=== PATIENT | female | born 1960 | race Caucasian/White ===

== ENCOUNTER 2018-10-03 16:32 | Inpatient (IN) | payer MEDICAID, OTHER ==
[~2018-10-03] VITALS: Ht 170.2 cm; Wt 61.2 kg
[2018-10-03] MEDS ORDERED: SODIUM CHLORIDE 0.9% 1000ML BAG (SEPSIS BOLUS) IV ONE (17:15)
[2018-10-03] MEDS ORDERED: LORAZEPAM 2MG/ML CPJ IM ONE (17:45)
[2018-10-03 17:48] LABS: BASOPHILS % 1.2 % (0.0-2.0); EOSINOPHILS % 2.3 % (0.0-5.0); HEMATOCRIT. 37.1 % (36.0-48.0); HEMOGLOBIN. 12.5 g/dL (12.0-16.0); LYMPHOCYTES % 35.8 % (20.0-50.0); MEAN CORPUSCULAR HEMOGLOBIN 28.4 pg (28.0-32.0); MEAN CORPUSCULAR VOLUME 84.6 fL (81.0-99.0); MEAN PLATELET VOLUME 7.9 fl (7.4-10.4); MONOCYTES % 8.4 % (2.0-8.0); NEUTROPHILS % 52.3 % (40.0-76.0); PLATELET 350 x1000/uL (130-400); RED BLOOD CELL COUNT 4.38 mill/uL (4.2-5.4); RED CELL DISTRIBUTION WIDTH 14.7 % (11.6-14.6)
[2018-10-03 17:52] LABS: CHLORIDE 104 mEq/L (98-107)
[2018-10-03 17:56] LABS: ETHANOL BLOOD < 10 mg/dL
[2018-10-03 17:58] LABS: PARTIAL THROMBOPLASTIN TIME 25.7 sec (23.4-31.0); PROTHROMBIN TIME 10.1 sec (9.1-11.1)
[2018-10-03 18:03] LABS: HCG SCREEN NEGATIVE
[2018-10-03 19:31] LABS: CLARITY URINE CLOUDY (CLEAR); COLOR URINE YELLOW (YELLOW); KETONES URINE TRACE (NEGATIVE); LEUKOCYTE ESTERASE URINE 3+ (NEGATIVE); NITRITE URINE NEGATIVE (NEGATIVE); OCCULT BLOOD URINE 2+ (NEGATIVE); PROTEIN URINE NEGATIVE (NEGATIVE); UROBILINOGEN URINE 0.2 E.U./dL (0.2-1.0)
[2018-10-03 19:49] LABS: *BENZODIAZEPINES SCREEN URINE NEGATIVE (NEGATIVE); *COCAINE SCREEN URINE NEGATIVE (NEGATIVE); CANNABINOID URINE SCREEN NEGATIVE (NEGATIVE); METHADONE URINE SCREEN NEGATIVE (NEGATIVE); OPIATES URINE SCREEN NEGATIVE (NEGATIVE); PHENCYCLIDINE URINE SCREEN NEGATIVE (NEGATIVE)
[2018-10-03 19:50] LABS: *AMPHETAMINES SCREEN URINE NEGATIVE (NEGATIVE); *BARBITURATES SCREEN URINE NEGATIVE (NEGATIVE)
[2018-10-03] MEDS ORDERED: LEVOFLOXACIN 750MG PREMIX 150 ML IV ONE (20:00)
[2018-10-03] MEDS ORDERED: MICONAZOLE NITRATE 2% OINT 71GM TOP SCH (21:00)
[2018-10-03] MEDS ORDERED: ASPIRIN 81MG TABLET PO ONE (21:15)
[2018-10-03] MEDS ORDERED: MAGNESIUM/ALUMINUM HYDROXIDE/SIMETHICONE 30ML UDC PO PRN (21:30)
[2018-10-03] MEDS ORDERED: ACETAMINOPHEN 325MG TABLET PO PRN (21:30)
[2018-10-03] MEDS ORDERED: IPRATROPIUM/ALBUTEROL 0.5-3(2.5)MG/3ML NEB INH PRN (21:30)
[2018-10-03] MEDS ORDERED: DIPHENHYDRAMINE 50MG/ML VIAL IV PRN (21:30)
[2018-10-03] MEDS ORDERED: GUAIFENESIN 200MG/10ML SUGAR FREE UDC PO PRN (21:30)
[2018-10-03] MEDS ORDERED: LORAZEPAM 2MG/ML CPJ IV PRN (21:30)
[2018-10-03] MEDS ORDERED: DOCUSATE SODIUM 100MG CAPSULE PO PRN (21:30)
[2018-10-03] MEDS ORDERED: CLONIDINE 0.1MG TABLET PO PRN (21:30)
[2018-10-03] MEDS ORDERED: HYDROCODONE/ACETAMINOPHEN 5/325MG TABLET PO PRN (21:30)
[2018-10-03] MEDS ORDERED: ONDANSETRON HCL 4MG/2ML INJ IV PRN (21:30)
[2018-10-03] MEDS ORDERED: LEVOFLOXACIN 500MG PREMIX 100 ML IV SCH (21:30)
[2018-10-03] MEDS ORDERED: MORPHINE SULFATE 4 MG/ML CPJ (NOT FOR IM USE) IV PRN (21:45)
[2018-10-04] VITALS: BP_SYST 111; BP_SYST 121; BP_DIAS 74; BP_DIAS 79
[2018-10-04 00:29] LABS: CHLORIDE 106 mEq/L (98-107)
[2018-10-04] MEDS ORDERED: DIVA500T3 MT (00:57)
[2018-10-04] MEDS: SODIUM CHLORIDE 0.45% 1,000 ML IV SCH ×2 (01:55→22:00)
[2018-10-04 04:00] VITALS: BP 112/66
[2018-10-04 08:00] VITALS: BP 123/70
[2018-10-04] MEDS ORDERED: NA PHOS,M-B/NA PHOS,DI-BA ENEMA 118ML PR PRN (09:00)
[2018-10-04 09:01] LABS: BASOPHILS % 0.8 % (0.0-2.0); EOSINOPHILS % 3.5 % (0.0-5.0); HEMATOCRIT. 34.3 % (36.0-48.0); HEMOGLOBIN. 11.3 g/dL (12.0-16.0); LYMPHOCYTES % 39.1 % (20.0-50.0); MEAN CORPUSCULAR HEMOGLOBIN 27.9 pg (28.0-32.0); MEAN CORPUSCULAR VOLUME 84.4 fL (81.0-99.0); MONOCYTES % 8.5 % (2.0-8.0); NEUTROPHILS % 48.1 % (40.0-76.0); PLATELET 348 x1000/uL (130-400); RED BLOOD CELL COUNT 4.06 mill/uL (4.2-5.4); RED CELL DISTRIBUTION WIDTH 14.6 % (11.6-14.6)
[2018-10-04] MEDS: ENOXAPARIN 40MG/0.4ML SYR SUBCUT SCH (09:42)
[2018-10-04 11:20] LABS: CHLORIDE 106 mEq/L (98-107)
[2018-10-04 11:32] LABS: LDL CHOLESTEROL 69 mg/dL (5-100)
[2018-10-04 11:34] LABS: HDL CHOLESTEROL 49 mg/dL (40-59)
[2018-10-04 12:00] VITALS: BP 133/73
[2018-10-04 16:00] VITALS: BP 142/78
[2018-10-04 20:00] VITALS: BP 115/63
[2018-10-04] MEDS ORDERED: LEVOFLOXACIN 500MG PREMIX 100 ML IV SCH (21:00)
[2018-10-05] VITALS: BP 111/61
[2018-10-05 04:00] VITALS: BP 123/64
[2018-10-05 08:00] VITALS: BP 116/58
[2018-10-05] MEDS: ENOXAPARIN 40MG/0.4ML SYR SUBCUT SCH (09:00)
[2018-10-05] MEDS: LORAZEPAM 2MG/ML CPJ IM PRN (10:26)
[2018-10-05 12:00] VITALS: BP 126/65
[2018-10-05 16:00] VITALS: BP 112/40
[2018-10-05] MEDS: NITROFURANTOIN 100MG M/M CAPSULE PO SCH ×2 (16:00→23:00)
[2018-10-05] MEDS: SODIUM CHLORIDE 0.45% 1,000 ML IV SCH (17:20)
[2018-10-06 04:00] VITALS: BP 101/52
[2018-10-06 08:00] VITALS: BP 96/53
[2018-10-06] MEDS: LORAZEPAM 2MG/ML CPJ IM PRN ×2 (08:03→20:57)
[2018-10-06] MEDS: NITROFURANTOIN 100MG M/M CAPSULE PO SCH ×2 (09:00→22:36)
[2018-10-06] MEDS: ENOXAPARIN 40MG/0.4ML SYR SUBCUT SCH (09:00)
[2018-10-06 12:00] VITALS: BP 111/68
[2018-10-06] MEDS: SODIUM CHLORIDE 0.45% 1,000 ML IV SCH (14:00)
[2018-10-06 16:00] VITALS: BP 105/55
[2018-10-06 20:00] VITALS: BP 98/66
[2018-10-07 06:00] VITALS: BP 110/65
[2018-10-07 08:00] VITALS: BP 134/63
[2018-10-07] MEDS: ENOXAPARIN 40MG/0.4ML SYR SUBCUT SCH (09:00)
[2018-10-07] MEDS: NITROFURANTOIN 100MG M/M CAPSULE PO SCH ×2 (09:38→20:13)
[2018-10-07] MEDS: SODIUM CHLORIDE 0.45% 1,000 ML IV SCH (09:48)
[2018-10-07] MEDS: LORAZEPAM 2MG/ML CPJ IM PRN ×2 (11:39→23:57)
[2018-10-07 15:51] VITALS: BP 121/61
[2018-10-07 20:00] VITALS: BP 110/60
[2018-10-08] VITALS: BP 104/65
[2018-10-08 04:00] VITALS: BP 154/82
[2018-10-08] MEDS: SODIUM CHLORIDE 0.45% 1,000 ML IV SCH (06:00)
[2018-10-08] MEDS: ENOXAPARIN 40MG/0.4ML SYR SUBCUT SCH (09:00)
[2018-10-08] MEDS: NITROFURANTOIN 100MG M/M CAPSULE PO SCH ×2 (09:00→21:00)
[2018-10-09] MEDS: SODIUM CHLORIDE 0.45% 1,000 ML IV SCH ×2 (02:00→22:00)
[2018-10-09] MEDS: LORAZEPAM 2MG/ML CPJ IM PRN ×3 (02:28→08:55)
[2018-10-09 08:00] VITALS: BP 131/72
[2018-10-09] MEDS: NITROFURANTOIN 100MG M/M CAPSULE PO SCH ×2 (08:16→21:00)
[2018-10-09] MEDS: ENOXAPARIN 40MG/0.4ML SYR SUBCUT SCH (08:17)
[2018-10-09 12:00] VITALS: BP 120/72
[2018-10-09 20:00] VITALS: BP 105/46
[2018-10-10] VITALS: BP 106/47
[2018-10-10 04:00] VITALS: BP 107/52
[2018-10-10 08:00] VITALS: BP 105/57
[2018-10-10] MEDS: NITROFURANTOIN 100MG M/M CAPSULE PO SCH ×2 (08:20→20:20)
[2018-10-10] MEDS: ENOXAPARIN 40MG/0.4ML SYR SUBCUT SCH (08:20)
[2018-10-10 12:00] VITALS: BP 147/75
[2018-10-10 16:00] VITALS: BP 110/60
[2018-10-10] MEDS: SODIUM CHLORIDE 0.45% 1,000 ML IV SCH (18:00)
[2018-10-10 20:00] VITALS: BP 121/76
[2018-10-11] VITALS: BP 127/67
[2018-10-11 04:00] VITALS: BP 129/51
[2018-10-11 08:00] VITALS: BP 121/56
[2018-10-11] MEDS: ENOXAPARIN 40MG/0.4ML SYR SUBCUT SCH (09:00)
[2018-10-11] MEDS: NITROFURANTOIN 100MG M/M CAPSULE PO SCH ×2 (09:00→21:00)
[2018-10-11] MEDS: SODIUM CHLORIDE 0.45% 1,000 ML IV SCH (14:00)
[2018-10-12 04:00] VITALS: BP 112/53
[2018-10-12] MEDS: ENOXAPARIN 40MG/0.4ML SYR SUBCUT SCH (09:00)
[2018-10-12] MEDS: NITROFURANTOIN 100MG M/M CAPSULE PO SCH ×2 (09:44→20:03)
[2018-10-12] MEDS: SODIUM CHLORIDE 0.45% 1,000 ML IV SCH (10:00)
[2018-10-12 20:00] VITALS: BP 141/73
[2018-10-13 00:25] VITALS: BP 96/45
[2018-10-13 04:00] VITALS: BP 139/49
[2018-10-13] MEDS: SODIUM CHLORIDE 0.45% 1,000 ML IV SCH (05:04)
[2018-10-13 07:30] VITALS: BP 113/84
[2018-10-13] MEDS: ENOXAPARIN 40MG/0.4ML SYR SUBCUT SCH (09:00)
[2018-10-13 12:00] VITALS: BP 192/94
[2018-10-14] MEDS: SODIUM CHLORIDE 0.45% 1,000 ML IV SCH ×2 (02:00→22:00)
[2018-10-14 08:00] VITALS: BP 121/56
[2018-10-14] MEDS: ENOXAPARIN 40MG/0.4ML SYR SUBCUT SCH (08:33)
[2018-10-14 12:00] VITALS: BP 140/86
[2018-10-14 16:00] VITALS: BP 131/80
[2018-10-14 20:00] VITALS: BP 129/63
[2018-10-15] VITALS: BP 133/80
[2018-10-15 04:00] VITALS: BP 112/60
[2018-10-15 08:00] VITALS: BP 111/52
[2018-10-15] MEDS: ENOXAPARIN 40MG/0.4ML SYR SUBCUT SCH (08:19)
[2018-10-15 20:00] VITALS: BP 122/60
[2018-10-15] MEDS: LORAZEPAM 2MG/ML CPJ IM PRN (22:06)
[2018-10-16] VITALS: BP 116/72
[2018-10-16 04:00] VITALS: BP 108/44
[2018-10-16 08:00] VITALS: BP 129/67
[2018-10-16] MEDS: ENOXAPARIN 40MG/0.4ML SYR SUBCUT SCH (09:00)
[2018-10-16] MEDS: SODIUM CHLORIDE 0.45% 1,000 ML IV SCH (09:34)
[2018-10-16] MEDS: LORAZEPAM 2MG/ML CPJ IM PRN ×2 (10:51→21:15)
[2018-10-16] MEDS ORDERED: HALOPERIDOL LACTATE 5MG/ML VIAL IM NR (11:15)
[2018-10-16 16:00] VITALS: BP 98/58
[2018-10-16 20:00] VITALS: BP 110/53
[2018-10-17] MEDS: LORAZEPAM 2MG/ML CPJ IM PRN ×2 (03:23→18:30)
[2018-10-17 04:00] VITALS: BP 105/51
[2018-10-17] MEDS: ENOXAPARIN 40MG/0.4ML SYR SUBCUT SCH (08:36)
[2018-10-17] MEDS: SODIUM CHLORIDE 0.45% 1,000 ML IV SCH (10:00)
[2018-10-17 12:00] VITALS: BP 147/78
[2018-10-17 20:00] VITALS: BP 100/42
[2018-10-18] VITALS: BP 118/50
[2018-10-18 04:00] VITALS: BP 128/62
[2018-10-18] MEDS: SODIUM CHLORIDE 0.45% 1,000 ML IV SCH (06:00)
[2018-10-18] MEDS: ENOXAPARIN 40MG/0.4ML SYR SUBCUT SCH (09:00)
[2018-10-18] MEDS: LORAZEPAM 2MG/ML CPJ IM PRN ×3 (09:34→21:27)
[2018-10-18 20:00] VITALS: BP 129/70
[2018-10-19] VITALS: BP 119/77
[2018-10-19] MEDS: SODIUM CHLORIDE 0.45% 1,000 ML IV SCH (02:00)
[2018-10-19 04:00] VITALS: BP 123/70
[2018-10-19] MEDS: LORAZEPAM 2MG/ML CPJ IM PRN ×2 (06:20→17:19)
[2018-10-19] MEDS: ENOXAPARIN 40MG/0.4ML SYR SUBCUT SCH (09:00)
[2018-10-20 08:00] VITALS: BP 139/81
[2018-10-20] MEDS: ENOXAPARIN 40MG/0.4ML SYR SUBCUT SCH (08:58)
[2018-10-20] MEDS ORDERED: HALOPERIDOL LACTATE 5MG/ML VIAL IM PRN (09:15)
[2018-10-20] MEDS: HALOPERIDOL LACTATE 5MG/ML VIAL IM PRN ×2 (10:12→23:00)
[2018-10-20 16:00] VITALS: BP 134/72
[2018-10-20 20:00] VITALS: BP 131/65
[2018-10-21] VITALS: BP 117/63
[2018-10-21 04:00] VITALS: BP 106/55
[2018-10-21] MEDS: HALOPERIDOL LACTATE 5MG/ML VIAL IM PRN ×2 (07:48→15:58)
[2018-10-21 08:00] VITALS: BP 137/53
[2018-10-21] MEDS: ENOXAPARIN 40MG/0.4ML SYR SUBCUT SCH (08:48)
[2018-10-21] MEDS: LORAZEPAM 2MG/ML CPJ IM PRN ×3 (08:49→17:42)
[2018-10-21] MEDS ORDERED: HALOPERIDOL 5MG TABLET PO NR (19:00)
[2018-10-21] MEDS ORDERED: HALOPERIDOL LACTATE 5MG/ML VIAL IM NR (19:00)
[2018-10-21 20:00] VITALS: BP 115/56
[2018-10-21] MEDS ORDERED: HALOPERIDOL 5MG TABLET PO PRN (23:00)
[2018-10-22] MEDS: HALOPERIDOL LACTATE 5MG/ML VIAL IM PRN ×3 (03:10→19:51)
[2018-10-22 04:00] VITALS: BP 122/3
[2018-10-22 08:00] VITALS: BP 108/66
[2018-10-22] MEDS: ENOXAPARIN 40MG/0.4ML SYR SUBCUT SCH (09:00)
[2018-10-22 10:05] LABS: HEMATOCRIT 35.1 % (36.0-48.0); HEMOGLOBIN 11.5 g/dL (12.0-16.0); MEAN CORPUSCULAR HEMOGLOBIN 27.9 pg (28.0-32.0); PLATELET 394 x1000/uL (130-400); RED BLOOD CELL COUNT 4.13 mill/uL (4.2-5.4); RED CELL DISTRIBUTION WIDTH 15.6 % (11.6-14.6)
[2018-10-22 12:00] VITALS: BP 118/68
[2018-10-22 16:00] VITALS: BP 158/78
[2018-10-22 20:00] VITALS: BP 129/70
[2018-10-23] VITALS: BP 135/80
[2018-10-23 04:00] VITALS: BP 134/69
[2018-10-23 08:00] VITALS: BP 112/67
[2018-10-23] MEDS: ENOXAPARIN 40MG/0.4ML SYR SUBCUT SCH (09:33)
[2018-10-23 12:00] VITALS: BP 108/60
[2018-10-23 16:00] VITALS: BP 170/82
[2018-10-23 20:00] VITALS: BP 129/77
[2018-10-23] MEDS: HALOPERIDOL LACTATE 5MG/ML VIAL IM PRN (23:09)
[2018-10-24] VITALS: BP 126/71
[2018-10-24] MEDS: SODIUM CHLORIDE 0.45% 1,000 ML IV SCH ×2 (02:00→22:00)
[2018-10-24 04:00] VITALS: BP 136/72
[2018-10-24 08:00] VITALS: BP 119/56
[2018-10-24] MEDS: ENOXAPARIN 40MG/0.4ML SYR SUBCUT SCH (08:37)
[2018-10-24 12:00] VITALS: BP 121/62
[2018-10-24 16:00] VITALS: BP 130/61
[2018-10-24] MEDS: HALOPERIDOL LACTATE 5MG/ML VIAL IM PRN (18:33)
[2018-10-24 20:00] VITALS: BP 119/55
[2018-10-25] VITALS: BP 116/62
[2018-10-25 04:00] VITALS: BP 134/63
[2018-10-25 07:38] VITALS: BP 127/70
[2018-10-25] MEDS: ENOXAPARIN 40MG/0.4ML SYR SUBCUT SCH (09:00)
[2018-10-25 12:00] VITALS: BP 119/71
[2018-10-25 16:00] VITALS: BP 133/68
[2018-10-25] MEDS: SODIUM CHLORIDE 0.45% 1,000 ML IV SCH (18:00)
[2018-10-25 20:00] VITALS: BP 129/69
[2018-10-26] VITALS: BP 134/64
[2018-10-26] MEDS: HALOPERIDOL LACTATE 5MG/ML VIAL IM PRN ×2 (00:51→21:52)
[2018-10-26 04:00] VITALS: BP 128/69
[2018-10-26 08:00] VITALS: BP 122/58
[2018-10-26] MEDS: ENOXAPARIN 40MG/0.4ML SYR SUBCUT SCH (09:00)
[2018-10-26 12:00] VITALS: BP 126/60
[2018-10-26] MEDS: SODIUM CHLORIDE 0.45% 1,000 ML IV SCH (14:00)
[2018-10-26 16:00] VITALS: BP 127/66
[2018-10-26 20:00] VITALS: BP 101/62
[2018-10-27] VITALS: BP 110/68
[2018-10-27 04:00] VITALS: BP 120/72
[2018-10-27 07:21] VITALS: BP 120/50
[2018-10-27] MEDS: ENOXAPARIN 40MG/0.4ML SYR SUBCUT SCH (09:00)
[2018-10-27] MEDS: SODIUM CHLORIDE 0.45% 1,000 ML IV SCH (10:00)
[2018-10-27] MEDS: HALOPERIDOL LACTATE 5MG/ML VIAL IM PRN ×2 (10:15→18:00)
[2018-10-27 12:00] VITALS: BP 113/70
[2018-10-27 16:00] VITALS: BP 113/71
[2018-10-27 20:00] VITALS: BP 133/70
[2018-10-28] VITALS: BP 127/78
[2018-10-28 04:00] VITALS: BP 136/72
[2018-10-28] MEDS: HALOPERIDOL LACTATE 5MG/ML VIAL IM PRN ×2 (04:54→16:15)
[2018-10-28] MEDS: SODIUM CHLORIDE 0.45% 1,000 ML IV SCH (06:00)
[2018-10-28 08:00] VITALS: BP 98/58
[2018-10-28] MEDS: ENOXAPARIN 40MG/0.4ML SYR SUBCUT SCH (09:38)
[2018-10-28 12:00] VITALS: BP 107/71
[2018-10-28 16:00] VITALS: BP 125/78
[2018-10-28 20:00] VITALS: BP 129/77
[2018-10-29] VITALS: BP 135/69
[2018-10-29] MEDS: SODIUM CHLORIDE 0.45% 1,000 ML IV SCH ×2 (02:00→22:00)
[2018-10-29 04:00] VITALS: BP 118/71
[2018-10-29] MEDS: HALOPERIDOL LACTATE 5MG/ML VIAL IM PRN (06:41)
[2018-10-29 08:00] VITALS: BP 126/69
[2018-10-29] MEDS: ENOXAPARIN 40MG/0.4ML SYR SUBCUT SCH (08:19)
[2018-10-29 12:00] VITALS: BP 136/65
[2018-10-29 16:00] VITALS: BP 125/71
[2018-10-29 20:00] VITALS: BP 119/68
[2018-10-30] VITALS: BP 128/72
[2018-10-30] MEDS: HALOPERIDOL LACTATE 5MG/ML VIAL IM PRN (01:03)
[2018-10-30 04:00] VITALS: BP 115/70
[2018-10-30 08:00] VITALS: BP 121/66
[2018-10-30] MEDS: ENOXAPARIN 40MG/0.4ML SYR SUBCUT SCH (09:00)
[2018-10-30 12:00] VITALS: BP 124/70
[2018-10-30 16:00] VITALS: BP 106/42
[2018-10-30] MEDS: SODIUM CHLORIDE 0.45% 1,000 ML IV SCH (17:23)
[2018-10-30 20:00] VITALS: BP 102/51
[2018-10-31 08:10] VITALS: BP 111/54
[2018-10-31] MEDS: ENOXAPARIN 40MG/0.4ML SYR SUBCUT SCH (08:35)
[2018-10-31 12:00] VITALS: BP 131/72
[2018-10-31] MEDS: SODIUM CHLORIDE 0.45% 1,000 ML IV SCH (14:00)
[2018-10-31] MEDS: HALOPERIDOL LACTATE 5MG/ML VIAL IM PRN (14:43)
[2018-10-31 16:00] VITALS: BP 126/68
[2018-10-31 19:00] VITALS: BP 121/56
[2018-11-01] VITALS: BP 120/56
[2018-11-01 08:00] VITALS: BP 123/52
[2018-11-01] MEDS: ENOXAPARIN 40MG/0.4ML SYR SUBCUT SCH (09:00)
[2018-11-01 12:00] VITALS: BP 120/56
[2018-11-01 16:00] VITALS: BP 117/48
[2018-11-01 20:00] VITALS: BP 135/74
[2018-11-02] VITALS: BP 124/69
[2018-11-02 04:00] VITALS: BP 126/71
[2018-11-02] MEDS: HALOPERIDOL LACTATE 5MG/ML VIAL IM PRN ×2 (06:47→21:54)
[2018-11-02 08:00] VITALS: BP 119/67
[2018-11-02] MEDS: ENOXAPARIN 40MG/0.4ML SYR SUBCUT SCH (08:23)
[2018-11-02 12:00] VITALS: BP 126/64
[2018-11-02 16:00] VITALS: BP 112/50
[2018-11-02 20:00] VITALS: BP 128/58
[2018-11-03] VITALS (7 sets, daily range): BP systolic 120–135; BP diastolic 50–68
[2018-11-03] MEDS: ENOXAPARIN 40MG/0.4ML SYR SUBCUT SCH (09:05)
[2018-11-03 09:44] LABS: HEMATOCRIT 37.8 % (36.0-48.0); HEMOGLOBIN 12.6 g/dL (12.0-16.0); MEAN CORPUSCULAR HEMOGLOBIN 28.2 pg (28.0-32.0); MEAN CORPUSCULAR VOLUME 84.8 fL (81.0-99.0); PLATELET 417 x1000/uL (130-400); RED BLOOD CELL COUNT 4.45 mill/uL (4.2-5.4); RED CELL DISTRIBUTION WIDTH 15.6 % (11.6-14.6)
[2018-11-03 10:23] LABS: CHLORIDE 108 mEq/L (98-107)
[2018-11-04 08:00] VITALS: BP 126/61
[2018-11-04] MEDS: DOCUSATE SODIUM 100MG CAPSULE PO SCH (09:25)
[2018-11-04] MEDS: ENOXAPARIN 40MG/0.4ML SYR SUBCUT SCH (09:25)
[2018-11-04 12:00] VITALS: BP 126/63
[2018-11-04 16:00] VITALS: BP 136/61
[2018-11-04 20:00] VITALS: BP 139/67
[2018-11-05] VITALS: BP 131/73
[2018-11-05 04:00] VITALS: BP 128/71
[2018-11-05 08:00] VITALS: BP 134/43
[2018-11-05] MEDS: DOCUSATE SODIUM 100MG CAPSULE PO SCH (08:49)
[2018-11-05] MEDS: ENOXAPARIN 40MG/0.4ML SYR SUBCUT SCH (08:49)
[2018-11-05 12:00] VITALS: BP 119/57
[2018-11-05 16:03] VITALS: BP 137/50
[2018-11-05 20:00] VITALS: BP 138/66
[2018-11-06] VITALS: BP 131/56
[2018-11-06 04:00] VITALS: BP 112/54
[2018-11-06 08:00] VITALS: BP 106/52
[2018-11-06] MEDS: ENOXAPARIN 40MG/0.4ML SYR SUBCUT SCH (09:16)
[2018-11-06] MEDS: DOCUSATE SODIUM 100MG CAPSULE PO SCH (09:16)
[2018-11-06] MEDS: HALOPERIDOL LACTATE 5MG/ML VIAL IM PRN ×2 (09:16→20:33)
[2018-11-06 12:00] VITALS: BP 119/55
[2018-11-06 16:00] VITALS: BP 114/61
[2018-11-06 20:00] VITALS: BP 136/80
[2018-11-07] VITALS: BP 118/77
[2018-11-07 04:00] VITALS: BP_SYST 119; BP_SYST 123; BP_DIAS 70
[2018-11-07 07:00] VITALS: BP 110/47
[2018-11-07] MEDS: DOCUSATE SODIUM 100MG CAPSULE PO SCH (08:11)
[2018-11-07] MEDS: ENOXAPARIN 40MG/0.4ML SYR SUBCUT SCH (08:12)
[2018-11-07 12:00] VITALS: BP 148/69
[2018-11-07 16:00] VITALS: BP 144/87
[2018-11-07 20:00] VITALS: BP 129/73
[2018-11-07] MEDS: HALOPERIDOL LACTATE 5MG/ML VIAL IM PRN (21:18)
[2018-11-08] VITALS: BP_SYST 123; BP_SYST 129; BP_DIAS 69; BP_DIAS 73
[2018-11-08 04:00] VITALS: BP 133/71
[2018-11-08 08:00] VITALS: BP 96/61
[2018-11-08] MEDS: DOCUSATE SODIUM 100MG CAPSULE PO SCH (08:30)
[2018-11-08] MEDS: ENOXAPARIN 40MG/0.4ML SYR SUBCUT SCH (08:30)
[2018-11-08 12:00] VITALS: BP 106/59
[2018-11-08 16:00] VITALS: BP 136/66
[2018-11-08 20:00] VITALS: BP 125/69
[2018-11-08] MEDS: HALOPERIDOL LACTATE 5MG/ML VIAL IM PRN (20:39)
[2018-11-09] VITALS: BP 130/70
[2018-11-09 04:00] VITALS: BP 129/67
[2018-11-09 08:00] VITALS: BP 132/62
[2018-11-09] MEDS: DOCUSATE SODIUM 100MG CAPSULE PO SCH (09:03)
[2018-11-09] MEDS: ENOXAPARIN 40MG/0.4ML SYR SUBCUT SCH (09:03)
[2018-11-09] MEDS: HALOPERIDOL LACTATE 5MG/ML VIAL IM PRN (22:12)
[2018-11-10] VITALS: BP 126/77
[2018-11-10 04:00] VITALS: BP 118/62
[2018-11-10 07:39] LABS: CHLORIDE 107 mEq/L (98-107)
[2018-11-10 07:45] LABS: BASOPHILS % 0.9 % (0.0-2.0); EOSINOPHILS % 4.8 % (0.0-5.0); HEMATOCRIT. 37.1 % (36.0-48.0); HEMOGLOBIN. 12.5 g/dL (12.0-16.0); LYMPHOCYTES % 45.8 % (20.0-50.0); MEAN CORPUSCULAR HEMOGLOBIN 28.2 pg (28.0-32.0); MEAN CORPUSCULAR VOLUME 83.9 fL (81.0-99.0); MEAN PLATELET VOLUME 7.7 fl (7.4-10.4); MONOCYTES % 6.5 % (2.0-8.0); PLATELET 470 x1000/uL (130-400); RED BLOOD CELL COUNT 4.42 mill/uL (4.2-5.4); RED CELL DISTRIBUTION WIDTH 15.2 % (11.6-14.6)
[2018-11-10 08:00] VITALS: BP 120/71
[2018-11-10] MEDS: HALOPERIDOL LACTATE 5MG/ML VIAL IM PRN ×2 (08:48→16:02)
[2018-11-10] MEDS: ENOXAPARIN 40MG/0.4ML SYR SUBCUT SCH (08:50)
[2018-11-10] MEDS: DOCUSATE SODIUM 100MG CAPSULE PO SCH (08:51)
[2018-11-10 12:00] VITALS: BP 117/60
[2018-11-10 16:00] VITALS: BP 125/69
[2018-11-10 20:00] VITALS: BP 118/70
[2018-11-11] VITALS: BP 128/70
[2018-11-11 04:00] VITALS: BP 135/77
[2018-11-11] MEDS: HALOPERIDOL LACTATE 5MG/ML VIAL IM PRN ×2 (07:26→21:07)
[2018-11-11 08:00] VITALS: BP 120/60
[2018-11-11] MEDS: ENOXAPARIN 40MG/0.4ML SYR SUBCUT SCH (08:11)
[2018-11-11] MEDS: DOCUSATE SODIUM 100MG CAPSULE PO SCH (08:11)
[2018-11-11 12:00] VITALS: BP 129/76
[2018-11-11 16:00] VITALS: BP 107/59
[2018-11-11 20:00] VITALS: BP 124/74
[2018-11-12] VITALS: BP 125/77
[2018-11-12 04:00] VITALS: BP 136/70
[2018-11-12 08:00] VITALS: BP 131/61
[2018-11-12] MEDS: DOCUSATE SODIUM 100MG CAPSULE PO SCH (08:12)
[2018-11-12] MEDS: ENOXAPARIN 40MG/0.4ML SYR SUBCUT SCH (08:12)
[2018-11-12 12:00] VITALS: BP 113/63
[2018-11-12 16:00] VITALS: BP 122/64
[2018-11-12 20:00] VITALS: BP 138/72
[2018-11-13] VITALS: BP 128/75
[2018-11-13 04:00] VITALS: BP 122/66
[2018-11-13 08:00] VITALS: BP 129/76
[2018-11-13] MEDS: DOCUSATE SODIUM 100MG CAPSULE PO SCH (08:18)
[2018-11-13] MEDS: ENOXAPARIN 40MG/0.4ML SYR SUBCUT SCH (08:19)
[2018-11-13 12:00] VITALS: BP 117/64
[2018-11-13 16:00] VITALS: BP 126/61
[2018-11-13 20:00] VITALS: BP 129/69
[2018-11-14] VITALS: BP 146/80
[2018-11-14 04:00] VITALS: BP 135/79
[2018-11-14 09:00] VITALS: BP 137/74
[2018-11-14] MEDS: DOCUSATE SODIUM 100MG CAPSULE PO SCH (09:28)
[2018-11-14] MEDS: HALOPERIDOL LACTATE 5MG/ML VIAL IM PRN (09:29)
[2018-11-14] MEDS: ENOXAPARIN 40MG/0.4ML SYR SUBCUT SCH (09:29)
[2018-11-14 12:00] VITALS: BP 118/68
[2018-11-14 16:00] VITALS: BP 113/54
[2018-11-14 20:00] VITALS: BP 141/76
[2018-11-15] VITALS: BP 138/72
[2018-11-15 04:00] VITALS: BP 107/59
[2018-11-15 08:00] VITALS: BP 115/51
[2018-11-15] MEDS: DOCUSATE SODIUM 100MG CAPSULE PO SCH (08:47)
[2018-11-15] MEDS: ENOXAPARIN 40MG/0.4ML SYR SUBCUT SCH (08:47)
[2018-11-15 12:00] VITALS: BP 100/61
[2018-11-15 16:00] VITALS: BP 110/55
[2018-11-15 20:00] VITALS: BP 114/70
[2018-11-16] VITALS: BP 118/75
[2018-11-16 04:00] VITALS: BP 136/71
[2018-11-16 08:00] VITALS: BP 101/59
[2018-11-16] MEDS: ENOXAPARIN 40MG/0.4ML SYR SUBCUT SCH (09:00)
[2018-11-16] MEDS: DOCUSATE SODIUM 100MG CAPSULE PO SCH (09:00)
[2018-11-16 12:23] VITALS: BP 117/71
[2018-11-16 15:24] VITALS: BP 119/63
[2018-11-16 20:00] VITALS: BP 122/74
[2018-11-16] MEDS: HALOPERIDOL LACTATE 5MG/ML VIAL IM PRN (21:46)
[2018-11-17] VITALS: BP 118/72
[2018-11-17 04:00] VITALS: BP 116/75
[2018-11-17 07:55] VITALS: BP 108/64
[2018-11-17] MEDS: DOCUSATE SODIUM 100MG CAPSULE PO SCH (08:25)
[2018-11-17] MEDS: ENOXAPARIN 40MG/0.4ML SYR SUBCUT SCH (08:26)
[2018-11-17 11:53] VITALS: BP 112/57
[2018-11-17 16:00] VITALS: BP 125/69
[2018-11-17 20:00] VITALS: BP 134/66
[2018-11-18] VITALS: BP 125/59
[2018-11-18 08:00] VITALS: BP 106/54
[2018-11-18] MEDS: DOCUSATE SODIUM 100MG CAPSULE PO SCH (09:00)
[2018-11-18 12:00] VITALS: BP 118/67
[2018-11-18 16:00] VITALS: BP 139/70
[2018-11-18 20:00] VITALS: BP 139/76
[2018-11-19] VITALS: BP 152/70
[2018-11-19 04:00] VITALS: BP 144/79
[2018-11-19 08:00] VITALS: BP 108/66
[2018-11-19] MEDS: DOCUSATE SODIUM 100MG CAPSULE PO SCH (08:36)
[2018-11-19 12:00] VITALS: BP 124/65
[2018-11-19 16:00] VITALS: BP 109/59
[2018-11-19 20:00] VITALS: BP 105/59
[2018-11-20] VITALS: BP 112/49
[2018-11-20 04:00] VITALS: BP 109/45
[2018-11-20 08:00] VITALS: BP 111/61
[2018-11-20] MEDS: DOCUSATE SODIUM 100MG CAPSULE PO SCH (08:57)
[2018-11-20 12:00] VITALS: BP 114/64
[2018-11-20 16:00] VITALS: BP 112/64
[2018-11-20 20:00] VITALS: BP 127/75
[2018-11-21] VITALS: BP 136/70
[2018-11-21 04:00] VITALS: BP 120/70
[2018-11-21 08:00] VITALS: BP 109/76
[2018-11-21] MEDS: DOCUSATE SODIUM 100MG CAPSULE PO SCH (08:44)
[2018-11-21 12:07] VITALS: BP 103/54
[2018-11-21 16:01] VITALS: BP 103/54
[2018-11-21 16:03] VITALS: BP 116/66
== END 2018-11-21 16:43 | disposition home or self-care (01) | DRG 52 ==
LOC: ER 17:47 → 5WST 21:13 → EDBD 21:13 → EDBEDREQ 21:15 → EDBEDREQTM 21:15 → ENRESERV 23:32 → 6EST 10-17 12:13
PROVIDERS: ADMIT Internal Medicine; ATTEND Internal Medicine
DX: G93.41 Metabolic encephalopathy (principal); R65.10 Systemic inflammatory response syndrome (SIRS) of non-infectious origin without acute organ dysfunction; N39.0 Urinary tract infection, site not specified; I10 Essential (primary) hypertension; E86.0 Dehydration; F79 Unspecified intellectual disabilities; Z78.1 Physical restraint status
CPT/HCPCS: 36415; 51702; 71045; 80048; 80061; 80165; 80305; 82140; 83605; 83880; 84145; 84484; 84703; 85027; 87077; 87186; 93005; 96361; 96365; 96366; 96372; 99285; A6261; G0482; J1630; J1650; J1956; J2060; J7030